=== PATIENT | male | born 1950 | race Two or more races ===

== ENCOUNTER 2020-09-28 04:32 | Emergency (ER) | payer OTHER ==
[~2020-09-28] VITALS: Ht 177.8 cm; Wt 149.7 kg
[2020-09-28] MEDS ORDERED: HYDROCHLOROTH12.5 MG (04:54)
[2020-09-28] MEDS ORDERED: NIFEDIPINE ER60 MG (04:55)
[2020-09-28] MEDS ORDERED: BENICAR40 MG (04:55)
== END 2020-09-28 15:26 | disposition home or self-care (01) ==
LOC: ER 04:32
DX: R60.0 Localized edema (principal); Z20.828 Contact with and (suspected) exposure to other viral communicable diseases